=== PATIENT | female | born 1965 | race Two or more races ===

== ENCOUNTER 2018-06-21 16:01 | Emergency (ER) | payer OTHER ==
[~2018-06-21] VITALS: Ht 157.5 cm; Wt 61.2 kg
[2018-06-21] MEDS ORDERED: LOTREL 5-10 MG1 CAP (16:42)
== END 2018-06-21 19:56 | disposition home or self-care (01) ==
LOC: ER 16:01
DX: I16.0 Hypertensive urgency (principal); I10 Essential (primary) hypertension